=== PATIENT | female | born 1995 | race Two or more races ===

== ENCOUNTER 2024-08-03 21:07 | Emergency (ER) | payer OTHER ==
[~2024-08-03] VITALS: Ht 167.6 cm; Wt 110.1 kg
--- NOTE | 2024-08-03 22:28 | DVH ---
OB ULTRASOUND <14 WEEKS: HISTORY: spotting TECHNIQUE: Multiple real-time grayscale sonographic images of the pelvis with duplex Doppler color f low, spectral and M-mode analysis. Findings/ IMPRESSION: The uterus measures 13.2 x 7.6 x 11.8 cm. No free fluid in the pelvic cul-de-sac. Intrauterine gestat ional sac measuring 6.2 cm. pole measuring 7.1 cm corresponding to 13 weeks 2 days. Placenta i s visualized. Estimated due date of February 06, 2025. heart rate of 154 beats per minute. Sma ll anechoic structure adjacent to the gestational sac measuring 1.7 x 0.6 x 0.8 cm. This may represe nt a small area of subchorionic hemorrhage. The left ovary is not visualized overlying bowel gas. Th e right ovary measures 4.3 x 2.6 x 3.4 cm. There is a cystic structure measuring up to 2 cm in the r ight ovary which may represent a corpus luteal cyst.
[2024-08-03 23:17] VITALS: PULSE 75; RESP 18; TEMP 98.5; O2SAT 99
--- NOTE | 2024-08-03 23:21 | ED.PDOC ---
[employer] HPI Comments 29-year-old female complaining of vaginal spotting at 7:00 p.m. today. Patient was concerned because she did have intercourse earlier in the day. States she has been having some abdominal cramping but that has been normal for the last few weeks. S Patient was . Patient states patient was recently moved out to the area and does not have OBGYN established she had. Chief Complaint: Vaginal Bleed Time Seen by MD: 21:30 Reviewed Notes: Nurses Notes Allergies: Coded Allergies: NO KNOWN ALLERGIES (Unverified , 08/03/24) Information Source: Patient Timing: Minutes Past Medical History PAST MEDICAL HISTORY: Denies Surgical History: Denies all surgeries ATTENDING PATHOLOGIST History: No Pertinent ATTENDING PATHOLOGIST History Constitutional: denies: chills, diaphoresis, fatigue, fever, malaise, sweats, weakness, others EENTM: denies: blurred vision, double vision, ear bleeding, ear discharge, ear drainage, ear pain, ear ringing, eye pain, eye redness, hearing loss, mouth pain, mouth swelling, nasal discharge, nose bleeding, nose congestion, nose pain, photophobia, tearing, throat pain, throat swelling, voice changes, others Respiratory: denies: cough, hemoptysis, orthopnea, SOB at rest, shortness of breath, SOB with excertion, stridor, wheezing, others Cardiovascular: denies: chest pain, dizzy spells, diaphoresis, Dyspnea on exertion, edema, irregular heart beat, left arm pain, lightheadedness, palpitations, PND, syncope, others Gastrointestinal: denies: abdomen distended, abdominal pain, blood streaked bowels, constipated, diarrhea, dysphagia, difficulty swallowing, hematemesis, melena, nausea, poor appetite, poor fluid intake, rectal bleeding, rectal pain, vomiting, others Genitourinary: reports: abnormal vagina bleeding; denies: burning, dyspareunia, dysuria, flank pain, frequency, hematuria, incontinence, pain, , vagina discharge, urgency, others Neurological: denies: dizziness, fainting, headache, left sided numbness, left sided weakness, numbness, paresthesia, pre-existing deficit, right sided numbness, right sided weakness, seizure, speech problems, tingling, tremors, weakness, others Musculoskeletal: denies: back pain, gout, joint pain, joint swelling, muscle pain, muscle stiffness, neck pain, others Integumetry: denies: bruises, change in color, change in hair/nails, dryness, laceration, lesions, lumps, rash, wounds, others Allergic/Immunocompromised: denies: Difficulty Healing, Frequent Infections, Hives, Itching, others Hematologic/Lymphatic: denies: anemia, blood clots, easy bleeding, easy bruising, swollen glands, others Endocrine: denies: excessive hunger, excessive sweating, excessive thirst, excessive urination, flushing, intolerance to cold, intolerance to heat, unexplained weight gain, unexplained weight loss, others Physical Exam General Appearance: No Apparent Distress, Normal HEENT: Normal ENT Inspection, Pharynx Normal, TMs Normal Neck: Full Range of Motion, Non-Tender, Normal, Normal Inspection Respiratory: Chest Non-Tender, Lungs Clear, No Accessory Muscle Use, No Respiratory Distress, Normal Breath Sounds Cardiovascular: No Edema, No JVD, No Murmur, No Gallop, Normal Peripheral Pulses, Regular Rate/Rhythm Breast Exam: Deferred Gastrointestinal: No Organomegaly, Non Tender, No Pulsatile Mass, Normal Bowel Sounds, Soft Genitalia: Deferred Pelvic: Deferred Rectal: Deferred Extremities: No calf tenderness, Normal capillary refill, Normal inspection, Normal range of motion, Non-tender, No pedal edema Musculoskeletal : Apperance: Normal Neurologic: Alert, retrieval specialist II-XII nml as Tested, No Motor Deficits, Normal Affect, Normal Mood, No Sensory Deficits Cerebellar Function: Normal Reflexes: Normal Skin: Dry, Normal Color, Warm Lymphatic: No Adenopathy Was a procedure done? Was a procedure done?: No Differential Diagnosis (ATTENDING PATHOLOGIST) Vaginal Bleeding: - Complete, - Incomplete, Abruptio Placentae, Blood Loss Anemia, Dysmenorrhea, Ectopic X-Ray, Labs, Meds, VS Vital Signs Date Time Temp Pulse Resp B/P (MAP) Pulse Ox O2 Delivery O2 Flow Rate FiO2 08/03/24 21:16 98.2 88 16 141/97 (112) 100 98.2 X-Ray, Labs, Meds, VS Comment Imaging: X-rays and CT scans were reviewed and interpreted by this provider, imaging shows no fractures and no pathological disease. Pending radiology review. Laboratory: Labs reviewed and interpreted by this provider. No significant abnormalities noted. Patient has prior medical visits reviewed. Med reconciliation performed Vital signs reviewed Time of 1ST Reevaluation: 23:21 Reevaluation 1ST: Improved Patient Education/Counseling: Diagnosis, Treatment, Need For Follow Up (Follow up in the emergency department in the next 24-48 hours if symptoms worsen. It was advised to follow up with your primary care doctor in the next 3-4 days for further evaluation.) Family Education/Counseling: Diagnosis Departure 1 Departure Time of Disposition: 23:20 Impression: Primary Impression: Subchorionic hemorrhage Qualified Codes: O20.8 - Other hemorrhage in early Disposition: 01 HOME / SELF CARE / HOMELESS Condition: Fair Discharged With: Self Critical Care Note Critical Care Time?: No Stability Stability form required: No Heart Score Heart Score: Heart Score Response (Comments) Value History N/A 0 EKG N/A 0 Age N/A 0 Risk Factors N/A 0 Troponin N/A 0 Total 0 MARIELY HURTADOP August 03, 2024 23:21
[2024-08-03 23:26] VITALS: BP 108/71; PULSE 72; RESP 12; O2SAT 97
== END 2024-08-03 23:27 | disposition home or self-care (01) ==
LOC: ER 21:07
DX: O20.8 Other hemorrhage in early pregnancy (principal); Z3A.12 12 weeks gestation of pregnancy
CPT/HCPCS: 76801